=== PATIENT | female | born 1945 | race Caucasian/White ===

== ENCOUNTER 2017-02-17 08:15 | Day surgery (SDC) | payer MEDICARE ==
[2017-02-17] MEDS ORDERED: PHENYLEPHRINE 2.5% OPHTH 2 ML DROPS ONE (08:25)
[2017-02-17] MEDS ORDERED: CYCLOPENTOLATE 1% OPHTH DROPS 2 ML OPTH ONE (08:47)
[2017-02-17] MEDS ORDERED: PROPARACAINE 0.5% OPHTH DROPS 15 ML OPTH ONE ×2 (08:47→09:58)
[2017-02-17] MEDS ORDERED: PHENYLEPHRINE 2.5% OPHTH 2 ML DROPS OPTH ONE (08:47)
[2017-02-17] MEDS ORDERED: KETOROLAC 0.45% OPHTH DROPS OPTH ONE (08:47)
[2017-02-17] MEDS ORDERED: LACTATED RINGERS 500 ML IV ONE (08:58)
[2017-02-17] MEDS ORDERED: MIDAZOLAM 2 MG/2 ML VIAL IVP ONE (09:56)
[2017-02-17] MEDS ORDERED: PROPOFOL 200 MG/20 ML VIAL IVP ONE (09:56)
[2017-02-17] MEDS ORDERED: LIDOCAINE-MPF 2% 5 ML VIAL IM ONE (09:56)
[2017-02-17] MEDS ORDERED: CHONDR SULF/HYALURONATE SYRINGE IO ONE (10:17)
[2017-02-17] MEDS ORDERED: BSS/LIDOCAINE/EPINEPHRINE 1 ML SYRINGE IO ONE (10:17)
[2017-02-17] MEDS ORDERED: BRIMONIDINE 0.2% OPHTH DROPS 5 ML OPTH ONE (10:17)
[2017-02-17] MEDS ORDERED: EPINEPHrine 1 MG/ML AMP IVP ONE (10:17)
[2017-02-17] MEDS ORDERED: TRIAMCIN/MOXIFLOX/VANCO 1 ML VIAL IO ONE (10:18)
== END 2017-02-17 08:16 | disposition home or self-care (01) ==
PROC: 08RJ3JZ Replacement of Right Lens with Synthetic Substitute, Percutaneous Approach (ICD-10-PCS; principal; 2017-02-17 09:30)
DX: H25.811 Combined forms of age-related cataract, right eye (principal); I10 Essential (primary) hypertension; Z90.710 Acquired absence of both cervix and uterus; Z87.891 Personal history of nicotine dependence; G47.30 Sleep apnea, unspecified; F40.240 Claustrophobia
CPT/HCPCS: 66984; A9270; V2632

== ENCOUNTER 2017-03-24 08:16 | Day surgery (SDC) | payer MEDICARE ==
[~2017-03-24 08:16] MED LIST: PHENYLEPHRINE 2.5% OPHTH 2 ML DROPS ONE
[2017-03-24] MEDS ORDERED: KETOROLAC 0.45% OPHTH DROPS OPTH ONE (08:35)
[2017-03-24] MEDS ORDERED: PHENYLEPHRINE 2.5% OPHTH 2 ML DROPS OPTH ONE (08:35)
[2017-03-24] MEDS ORDERED: PROPARACAINE 0.5% OPHTH DROPS 15 ML OPTH ONE ×2 (08:35→09:24)
[2017-03-24] MEDS ORDERED: CYCLOPENTOLATE 1% OPHTH DROPS 2 ML OPTH ONE (08:35)
[2017-03-24] MEDS ORDERED: LACTATED RINGERS 500 ML IV ONE (08:47)
[2017-03-24] MEDS ORDERED: CHONDR SULF/HYALURONATE SYRINGE IO ONE (09:24)
[2017-03-24] MEDS ORDERED: TRIAMCIN/MOXIFLOX/VANCO 1 ML VIAL IO ONE ×2 (09:24)
[2017-03-24] MEDS ORDERED: BRIMONIDINE 0.2% OPHTH DROPS 5 ML OPTH ONE (09:24)
[2017-03-24] MEDS ORDERED: TIMOLOL 0.5% OPHTH DROPS OPTH ONE (09:24)
[2017-03-24] MEDS ORDERED: EPINEPHrine 1 MG/ML AMP IVP ONE (09:24)
[2017-03-24] MEDS ORDERED: BSS/LIDOCAINE/EPINEPHRINE 1 ML SYRINGE IO ONE ×2 (09:24)
[2017-03-24] MEDS ORDERED: MIDAZOLAM 2 MG/2 ML VIAL IVP ONE (09:25)
[2017-03-24 10:03] VITALS: BP 166/68
--- NOTE | 2017-03-24 14:25 | OPERATIVE REPORT ---
DATE OF SURGERY: 03/24/2017 00:00:00 PREOPERATIVE DIAGNOSIS: Visually significant cataract, left eye. Cataract surgery was performed on th e right eye on 02/17/2017. POSTOPERATIVE DIAGNOSIS: Visually significant cataract, left eye. Cataract surgery was performed on t right eye on 02/17/2017. NAME OF PROCEDURE: Phacoemulsification posterior chamber intraocular lens implant, left eye, with las er assist. SURGEON: Carlos Higuera MD. ANESTHESIA: Monitored anesthesia care. COMPLICATIONS: None. 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 Best corrected visual acuity was 20/50 with glare to 20/160 in the left eye. Indications for surgery were overall decrease in vision, difficulty seeing w ords on the computer screen, difficulty reading, difficulty seeing street signs, difficulty driving a t night because of headlights from other vehicles or street lights, and difficulty with glare or brig ht lights in any situation. She was consented at length concerning the risks and benefits of cataract surgery, after which she expressed a desire to proceed with surgery. OPERATIVE PROCEDURE: The patient was taken into OR #2 and placed under monitored anesthesia care. A s urgical time-out was conducted confirming the correct patient, correct procedure and correct surgical site. She was placed in the LenSx laser and her eye docked to the laser interface. The laser perform ed the capsulotomy, lens softening, phaco wounds, and arcuate keratotomy incisions. She was then move d to the operating microscope, given topical anesthesia, and then prepped and draped in the usual rebecca rile fashion. The eye was entered at the 6- and 3 o'clock positions. Intracameral Shugarcaine was inj ected into the anterior chamber, followed by Viscoat. Capsulorrhexis flap created by the LenSx laser was removed from the anterior chamber. The nucleus was hydrodissected and phacoemulsified. The cortex was evacuated using automated infusion aspiration. Provisc was injected in the capsular bag and a 22 .5 diopter intraocular lens was inserted into the bag. Approximately 0.8 mL of a mixture of triamcino lone, moxifloxacin, and vancomycin was injected subconjunctivally in the superior quadrant for infect ion and inflammation prophylaxis. I/A was used to evacuate the viscoelastic materials. The eye was in flated to physiologic pressure using balanced salt solution and found to be watertight. The patient w as taken from the operating room in good condition and given postoperative instructions. JOB #: [id number] EXT JOB #:[id number]
== END 2017-03-24 08:17 | disposition home or self-care (01) ==
LOC: SDS 08:16
PROVIDERS: ATTEND Ophthalmology
PROC: 08RK3JZ Replacement of Left Lens with Synthetic Substitute, Percutaneous Approach (ICD-10-PCS; principal; 2017-03-24 09:30)
DX: H25.812 Combined forms of age-related cataract, left eye (principal); I10 Essential (primary) hypertension; Z87.891 Personal history of nicotine dependence; E66.9 Obesity, unspecified; Z68.36 Body mass index [BMI] 36.0-36.9, adult; R05 Cough
CPT/HCPCS: 66984; A9270; V2632

== ENCOUNTER 2017-10-28 00:31 | Outpatient (CLI) | payer MEDICARE | END 2017-10-28 00:32 | disposition short-term general hospital (02) | LOC: EMS 00:31 | PROVIDERS: ATTEND Surgery | DX: R07.9 Chest pain, unspecified (principal); R42 Dizziness and giddiness | CPT/HCPCS: A0425; A0427 ==

== ENCOUNTER 2017-11-06 11:13 | Outpatient (CLI) | payer MEDICARE | END 2017-11-06 11:14 | disposition EMS.NT | LOC: EMS 11:13 | PROVIDERS: ATTEND Surgery | DX: R07.9 Chest pain, unspecified (principal) ==

== ENCOUNTER 2018-03-08 08:19 | Outpatient (CLI) | payer MEDICARE ==
--- NOTE | 2018-03-08 17:16 | Mammography Report ---
DIGITAL SCREENING MAMMOGRAM: 03/08/2018 CLINICAL INDICATION: A 73-year-old for screening. COMPARISON: 03/2014, 05/2012, 10/2010. TECHNIQUE: Routine CC and MLO projections were obtained of the breasts. FINDINGS: Scattered fibroglandular tissue is present within the breasts. There are no dominant masses, suspicious microcalcifications, or secondary signs of malignancy. In comparison to the previous studies, there are no significant changes. ASSESSMENT: NO MAMMOGRAPHIC EVIDENCE OF MALIGNANCY. NO SIGNIFICANT INTERVAL CHANGES. RECOMMENDATION: Screening mammography is recommended annually. BIRADS CATEGORY 1 - NEGATIVE. STANDARD QUALIFYING STATEMENTS: 1. This examination was reviewed with the aid of Computed-Aided Detection (CAD). 2. A negative or benign imaging report should not delay biopsy if clinically suspicious findings are present. Consider surgical consultation if warranted. More than 5% of cancers are not identified by imaging. 3. Dense breasts may obscure an underlying neoplasm. TD: 03/08/2018 17:15
== END 2018-03-08 08:20 | disposition home or self-care (01) ==
LOC: DI 08:19
PROVIDERS: ATTEND Specialist
DX: Z12.31 Encounter for screening mammogram for malignant neoplasm of breast (principal)
CPT/HCPCS: 77067

== ENCOUNTER 2019-02-26 05:47 | Outpatient (CLI) | payer MEDICARE | END 2019-02-26 05:48 | disposition short-term general hospital (02) | LOC: EMS 05:47 | PROVIDERS: ATTEND Surgery | DX: R07.9 Chest pain, unspecified (principal); I10 Essential (primary) hypertension; R06.00 Dyspnea, unspecified | CPT/HCPCS: A0425; A0427 ==

== ENCOUNTER 2020-08-10 20:34 | Outpatient (CLI) | payer MEDICARE | END 2020-08-10 20:35 | disposition short-term general hospital (02) | LOC: EMS 20:34 | PROVIDERS: ATTEND Surgery | DX: R07.89 Other chest pain (principal); R06.02 Shortness of breath | CPT/HCPCS: A0425; A0427 ==